=== PATIENT | male | born 1990 | race Caucasian/White ===

== ENCOUNTER 2019-05-20 10:42 | Emergency (ER) | payer BC ==
[2019-05-20 13:19] VITALS: BP 109/82
--- NOTE | 2019-05-20 13:31 | UC ---
FLU HPI - HPI Summary HPI Summary: General weakness, fever, cough, body aches, chest and sinus congestion since Friday. - History of Current Complaint Chief Complaint: UCGeneralIllness Stated Complaint: FLU LIKE ILLNESS Time Seen by Provider: 05/20/19 13:28 Hx Obtained From: Patient Onset/Duration: Sudden Onset, Lasting Days Severity Currently: Mild Severity Initially: Mild Pain Intensity: 0 Associated Signs & Symptoms: Positive: Myalgia, Cough, Sore Throat, Nasal Congestion, Headache - Allergy/Home Medications Allergies/Adverse Reactions: Allergies Allergy/AdvReac Type Severity Reaction Status Date / Time No Known Allergies Allergy Verified 05/20/19 13:13 Home Medications: Home Medications Albuterol HFA INHALER* [Ventolin HFA Inhaler*] 2 puff INH Q4H PRN #1 mdi [Rx] Dm/PE/Acetaminophen/Doxylamine [Nighttime Severe Cold-Flu Liq] 1 dose PO ONCE [History Confirmed 05/20/19] Phenylephrine/Dm/Acetaminop/GG [Daytime Severe Cold-Flu Liquid] 1 dose PO ONCE 05/20/19 [History Confirmed 05/20/19] guaiFENesin 100 mg/5 ml LIQ [Robitussin 100 mg/5ml LIQ] 1 dose PO ONCE 05/20/19 [History Confirmed 05/20/19] PMH/Surg Hx/FS Hx/Imm Hx Previously Healthy: Yes - Surgical History Surgical History: Yes Surgery Procedure, Year, and Place: tonsillectomy - Family History Known Family History: Positive: Hypertension - Social History Alcohol Use: Occasionally Substance Use Type: Marijuana Smoking Status (MU): Current Some Day Smoker Amount Used/How Often: 3 cigs/week Review of Systems All Other Systems Reviewed And Are Negative: Yes Constitutional: Positive: Fever, Chills, Fatigue ENT: Positive: Sore Throat, Ear Ache Respiratory: Positive: Cough Musculoskeletal: Positive: Myalgia Neurological/Mental Status: Positive: Headache Physical Exam Triage Information Reviewed: Yes Appearance: Well-Nourished, Ill-Appearing, Pain Distress Vital Signs: Initial Vital Signs Temp 98.6 F 05/20/19 13:14 Pulse 112 05/20/19 13:14 Resp 17 05/20/19 13:14 BP 109/82 05/20/19 13:14 Pulse Ox 97 05/20/19 13:14 Vital Signs Reviewed: Yes ENT: Positive: Pharyngeal erythema, Nasal congestion, Nasal drainage Neck exam: Normal Respiratory: Positive: Chest non-tender, Normal breath sounds, Decreased breath sounds Cardiovascular: Positive: No Murmur, Pulses Normal, Tachycardia Abdominal Exam: Normal Bowel Sounds: Positive: Present Musculoskeletal Exam: Normal Neurological Exam: Normal Psychological Exam: Normal Skin Exam: Normal Flu Course/Dx - Course Course Of Treatment: hx obtained, exam performed ,meds reviewed, rapid flu obtained and is positive - Differential Dx/Diagnosis Differential Diagnosis/HQI/PQRI: Influenza Provider Diagnosis: Influenza B Discharge ED - Sign-Out/Discharge Documenting (check all that apply): Patient Departure All imaging exams completed and their final reports reviewed: No Studies - Discharge Plan Condition: Stable Disposition: HOME Patient Education Materials: Influenza (ED) Referrals: No Primary Care Phys,NOPCP [Primary Care Provider] - Additional Instructions: 1. Rest, increase fluids and take ibuprofen and tylenol for fever and pain 2. may return to work when fever free without medication for 24 hours. - Billing Disposition and Condition Condition: STABLE Disposition: Home
[2019-05-20 13:39] LABS: Influenza B Molecular POSITIVE (Negative)
== END 2019-05-20 13:51 | disposition home or self-care (01) ==
LOC: UCCORT 10:42
DX: J10.1 Influenza due to other identified influenza virus with other respiratory manifestations (principal); R51 Headache; F17.210 Nicotine dependence, cigarettes, uncomplicated
CPT/HCPCS: 99202; G0463